=== PATIENT | female | born 1970 | race Caucasian/White ===

== ENCOUNTER 2023-01-25 14:13 | Inpatient (IN) | payer BC ==
[~2023-01-25] VITALS: Ht 167.6 cm; Wt 65.9 kg
[2023-01-25 14:41] LABS: BASOPHILS % (AUTO) 0.8 % (0-1); EOSINOPHILS # (AUTO) 0.2 X10'3 (0-0.9); EOSINOPHILS % (AUTO) 3.5 % (0-6); HEMATOCRIT 40.8 % (35.0-45.0); HEMOGLOBIN 13.5 g/dl (12.0-16.0); LYMPHOCYTES # (AUTO) 1.7 X10'3 (1.1-4.8); MEAN CORPUSCULAR HEMOGLOBIN 29.1 PG (27.0-31.0); MEAN CORPUSCULAR HGB CONC 33.2 g/dL (33.0-36.5); MEAN CORPUSCULAR VOLUME 87.7 FL (78-98); MEAN PLATELET VOLUME 8.2 FL (7.4-10.4); MONOCYTES # (AUTO) 0.5 X10'3 (0-0.9); MONOCYTES % (AUTO) 7.7 % (2-12); NEUTROPHILS # (AUTO) 3.6 X10'3 (1.8-7.7); PLATELET COUNT 293 X10'3 (140-440); RED BLOOD COUNT 4.65 X10'6 (4.20-5.60); RED CELL DISTRIBUTION WIDTH 13.6 % (11.5-14.5)
[2023-01-25] MEDS ORDERED: iohexol 350MG/ML 100ml bottle IV ONE (14:50)
[2023-01-25 14:55] LABS: APTT 25 SECONDS (22-32)
[2023-01-25] MEDS ORDERED: aspirin 81mg tab.chew PO ONE (15:00)
[2023-01-25 15:01] LABS: ALANINE AMINOTRANSFERASE 26 U/L (12-78); ALBUMIN/GLOBULIN RATIO 1.2 (1.1-1.5); ALKALINE PHOSPHATASE 54 IU/L (46-116); ANION GAP 9 (8-16); ASPARTATE AMINO TRANSFERASE 24 U/L (10-37); BILIRUBIN,TOTAL 0.5 MG/DL (0.1-1.0); BLOOD UREA NITROGEN 9 MG/DL (7-18); BUN/CREATININE RATIO 12.2 (10.0-20.0); CHLORIDE 106 MMOL/L (99-107); CREATININE 0.74 MG/DL (0.40-0.90); GLUCOSE 108 MG/DL (70-104); POTASSIUM 3.8 MMOL/L (3.5-5.1); SODIUM 143 MMOL/L (135-145); TOTAL CARBON DIOXIDE 27.6 MMOL/L (24-32); TOTAL PROTEIN 7.3 G/DL (6.4-8.2); eGFR 83 ML/MIN
[2023-01-25] MEDS ORDERED: ondansetron 4mg rapidly disintigrating tab PO PRN (17:40)
[2023-01-25] MEDS ORDERED: acetaminophen 325mg tablet PO PRN ×2 (17:40)
[2023-01-25] MEDS ORDERED: acetaminophen 650mg rectal suppository RC PRN (17:40)
[2023-01-25] MEDS ORDERED: potassium Cl 20 mEq SR tablet PO PRN ×2 (17:40)
[2023-01-25] MEDS ORDERED: magnesium Cl slow-release 64mg tablet PO PRN (17:40)
[2023-01-25] MEDS ORDERED: magnesium 4gm in 100ml NS 100 ML IV PRN (17:40)
[2023-01-25] MEDS ORDERED: magnesium 2GM in 50ml NS 50 ML IV PRN (17:40)
[2023-01-25] MEDS ORDERED: magnesium hydroxide 30ml (MOM) UD suspension PO PRN (17:40)
[2023-01-25] MEDS ORDERED: potassium Cl 40MEQ/1/2NS 520ml 520 ML IV PRN (17:40)
[2023-01-25] MEDS ORDERED: PERFLUTREN PROTEIN-A MICROSPHR (Optison) 0.22 MG/ML 3ML VIAL IV ONE (17:40)
[2023-01-25] MEDS ORDERED: ondansetron/PF 4mg/2ml inj IV PRN (17:40)
[2023-01-25] MEDS ORDERED: mag hydrox/Alum hydrox/simeth 30ml oral suspension PO PRN (17:40)
[2023-01-25] MEDS ORDERED: DULO60CA65 PO (17:56)
[2023-01-25] MEDS: atorvastatin 20mg tablet PO SCH (18:04)
[2023-01-25] MEDS: normal saline 1000ml 1,000 ML IV SCH ×2 (18:05→23:32)
[2023-01-25 18:20] LABS: HEMOGLOBIN A1C 5.5 % (4.5-6.2)
--- NOTE | 2023-01-25 18:24 | NUR ---
echo at bedside
[2023-01-25 18:25] LABS: CHOL/HDL RATIO 2.9 (0.00-4.99); CHOLESTEROL 212 MG/DL (0-200); HDL CHOLESTEROL 72 MG/DL (35-60); LDL CHOLESTEROL 108 MG/DL (50-100); MAGNESIUM 2.4 MG/DL (1.5-2.4); TRIGLYCERIDES 106 MG/DL (20-135)
[2023-01-25 20:47] LABS: C-REACTIVE PROTEIN 0.06 MG/DL (0.0-0.5)
[2023-01-25 23:00] VITALS: BP 149/91
[2023-01-25] MEDS: K and/or MAG REPLACEMENT MC SCH (23:30)
[2023-01-25] MEDS: docusate sod 100mg capsule PO SCH (23:32)
--- NOTE | 2023-01-25 23:53 | NUR ---
Pt refused MRSA swab.
[2023-01-26 03:18] VITALS: BP 144/75
--- NOTE | 2023-01-26 06:26 | NUR ---
Problems reprioritized. Patient report given, questions answered & plan of care reviewed with Rosemary. Addendum: 01/26/23 at 0626 by Joseph Barry RN Amended: Links added.
[2023-01-26 07:07] LABS: BASOPHILS # (AUTO) 0.1 X10'3 (0-0.2); EOSINOPHILS # (AUTO) 0.2 X10'3 (0-0.9); EOSINOPHILS % (AUTO) 3.9 % (0-6); HEMATOCRIT 37.7 % (35.0-45.0); HEMOGLOBIN 12.4 g/dl (12.0-16.0); LYMPHOCYTES # (AUTO) 1.8 X10'3 (1.1-4.8); LYMPHOCYTES % (AUTO) 27.4 % (21-51); MEAN CORPUSCULAR HEMOGLOBIN 28.9 PG (27.0-31.0); MEAN CORPUSCULAR VOLUME 87.6 FL (78-98); MEAN PLATELET VOLUME 8.4 FL (7.4-10.4); MONOCYTES # (AUTO) 0.4 X10'3 (0-0.9); MONOCYTES % (AUTO) 6.6 % (2-12); NEUTROPHILS # (AUTO) 3.9 X10'3 (1.8-7.7); NEUTROPHILS % (AUTO) 61.1 % (42-75); PLATELET COUNT 253 X10'3 (140-440); RED CELL DISTRIBUTION WIDTH 13.6 % (11.5-14.5); WHITE BLOOD COUNT 6.4 X10'3 (4.5-11.0)
[2023-01-26 07:18] LABS: ALANINE AMINOTRANSFERASE 23 U/L (12-78); ALBUMIN 3.1 G/DL (3.4-5.0); ALBUMIN/GLOBULIN RATIO 1.1 (1.1-1.5); ALKALINE PHOSPHATASE 42 IU/L (46-116); ANION GAP 7 (8-16); ASPARTATE AMINO TRANSFERASE 20 U/L (10-37); BILIRUBIN,TOTAL 0.6 MG/DL (0.1-1.0); BLOOD UREA NITROGEN 9 MG/DL (7-18); BUN/CREATININE RATIO 12.9 (10.0-20.0); CALCIUM 8.1 MG/DL (8.5-10.1); CHLORIDE 108 MMOL/L (99-107); GLUCOSE 87 MG/DL (70-104); MAGNESIUM 2.1 MG/DL (1.5-2.4); POTASSIUM 4.1 MMOL/L (3.5-5.1); SODIUM 141 MMOL/L (135-145); TOTAL CARBON DIOXIDE 26.3 MMOL/L (24-32); eGFR 88 ML/MIN
[2023-01-26] MEDS: K and/or MAG REPLACEMENT MC SCH (08:20)
[2023-01-26] MEDS ORDERED: aspirin 81mg tab.chew PO SCH (08:30)
[2023-01-26] MEDS ORDERED: LORazepam 2 mg/ml vial IV ONE (09:20)
[2023-01-26] MEDS: docusate sod 100mg capsule PO SCH (09:32)
[2023-01-26] MEDS: atorvastatin 20mg tablet PO SCH (09:32)
[2023-01-26 10:00] VITALS: BP 131/81
[2023-01-26] MEDS ORDERED: ATOR20TA66 PO (11:57)
[2023-01-27] MEDS ORDERED: duloxetine 30mg CAPSULE.DR PO SCH (08:00)
== END 2023-01-26 15:35 | disposition home or self-care (01) | DRG 103 ==
LOC: ER 14:13 → ED HOLD 17:48 → ORTHO 4S 22:35
PROVIDERS: ADMIT Family Medicine; ATTEND Family Medicine
PROC: B3251ZZ Computerized Tomography (CT Scan) of Bilateral Common Carotid Arteries using Low Osmolar Contrast (ICD-10-PCS; principal; 2023-01-25)
PROC: B32G1ZZ Computerized Tomography (CT Scan) of Bilateral Vertebral Arteries using Low Osmolar Contrast (ICD-10-PCS; 2023-01-25)
PROC: B32R1ZZ Computerized Tomography (CT Scan) of Intracranial Arteries using Low Osmolar Contrast (ICD-10-PCS; 2023-01-25)
PROC: B3281ZZ Computerized Tomography (CT Scan) of Bilateral Internal Carotid Arteries using Low Osmolar Contrast (ICD-10-PCS; 2023-01-25)
DX: G43.909 Migraine, unspecified, not intractable, without status migrainosus (principal); H54.62 Unqualified visual loss, left eye, normal vision right eye; F32.A Depression, unspecified; E78.5 Hyperlipidemia, unspecified; K76.0 Fatty (change of) liver, not elsewhere classified; R53.82 Chronic fatigue, unspecified; Z88.2 Allergy status to sulfonamides; Z88.5 Allergy status to narcotic agent; Z79.899 Other long term (current) drug therapy
CPT/HCPCS: 36415; 70450; 70496; 70498; 70551; 71045; 80053; 80061; 82948; 83036; 83735; 84439; 84443; 85025; 85610; 85651; 85730; 86140; 92508; 92616; 93306; 99285; G0378; J2060; J3490; J7030; Q9967

== ENCOUNTER 2024-08-05 09:39 | Outpatient (CLI) | payer OTHER ==
[~2024-08-05 09:39] MED LIST: ATOR20TA66 PO; DULO60CA65 PO
== END 2024-08-05 23:59 | disposition home or self-care (01) ==
LOC: MRI 09:39
PROVIDERS: ATTEND Family Medicine
DX: M51.379 Other intervertebral disc degeneration, lumbosacral region without mention of lumbar back pain or lower extremity pain (principal); M47.817 Spondylosis without myelopathy or radiculopathy, lumbosacral region; M54.42 Lumbago with sciatica, left side
CPT/HCPCS: 72148